=== PATIENT | female | born 1985 | race Hispanic/Latino ===

== ENCOUNTER → 2020-01-20 | Outpatient (CLI) | payer OTHER | LOC: LAB.O 12:23 | PROVIDERS: ATTEND Obstetrics & Gynecology | DX: O09.32 Supervision of pregnancy with insufficient antenatal care, second trimester (principal); Z3A.22 22 weeks gestation of pregnancy ==

== ENCOUNTER 2020-02-11 10:31 | Emergency (ER) | payer OTHER ==
[2020-02-11] MEDS ORDERED: MORPHINE SULFATE INJ 10 MG/ML VIAL IV ONE (10:39)
[2020-02-11] MEDS ORDERED: METOCLOPRAMIDE HCL INJ 10 MG/2 ML VIAL IV ONE (10:39)
--- NOTE | 2020-02-11 10:43 | ED.PDOC ---
History of Present Illness - General Time Seen by Provider: 02/11/20 10:37 Source: patient, RN notes reviewed Exam Limitations: no limitations Additional Information: 34 Female, with no known medical problems, patient is 25 weeks last m enstrual period was August 15 patient is 3 para 2 presents to the ER because of abdominal pain and back pain. Patient has good care. Patient stated that she was at home she was carrying a laundry bag down some steps when she fell she injured her back and then she fell forward hitting her abdomen, patient is concerned because of the abdominal trauma but denies any vaginal bleeding, patient is A+ patietn sees Dr Roy. patient arrived tearful she denies head trauma - History of Present Illness Timing/Duration: other - 15 minutes ago Severity: moderate Improving Factors: nothing Worsening Factors: nothing Associated Symptoms: denies symptoms Review of Systems - Review of Systems Constitutional: States: no symptoms reported EENTM: States: no symptoms reported Respiratory: States: no symptoms reported Cardiology: States: no symptoms reported Gastrointestinal/Abdominal: States: abdominal pain Genitourinary: States: no symptoms reported Musculoskeletal: States: back pain Skin: States: no symptoms reported Neurological: States: no symptoms reported Endocrine: States: no symptoms reported Hematologic/Lymphatic: States: no symptoms reported Physical Exam - Physical Exam General Appearance: Well Developed, Well Groomed, Well Hydrated, Well Nourished Eye Exam: bilateral normal Ears, Nose, Throat: hearing grossly normal, normal ENT inspection, normal pharynx Neck: non-tender, full range of motion, supple Respiratory: chest non-tender, lungs clear, normal breath sounds, no respiratory distress, no accessory muscle use Cardiovascular/Chest: normal peripheral pulses, regular rate, rhythm, no edema, no gallop, no JVD, no murmur Gastrointestinal/Abdominal: other - gravid, no acute abdomen Back Exam: other - mid line back tenderness no step offs 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 Patient is 25 weeks , she denies any vaginal bleeding and she stated that she is A+. I ordered ultrasound I order, CBC CMP and urinalysis. Unfortunately we do not have labeling delivery in this hospital, and in order to clear this patient given that she is more than, patient will need to be transferred to L&D for monitoring. 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 Patient needs a trauma surgeon at this moment given that the injury was minor but the concern is obviously fetus Calls for arrange for transfer 02/11/20 10:46 Departure - Departure Clinical Impression: Traumatic injury during in second trimester Fall Qualifiers: Encounter type: initial encounter Qualified Code(s): W19.XXXA - Unspecified fall, initial encounter Abdominal pain in Qualifiers: Trimester: second trimester Qualified Code(s): O26.892 - Other specified related conditions, second trimester; R10.9 - Unspecified abdominal pain Disposition: Transfer to Hospital Referrals: Jameson Simms MD [Primary Care Provider] - 1-2 Weeks Transfer to Outside Facility - Transfer Information Decision to Transfer Date: 02/11/20 Decision to Transfer Time: 10:48 Reason for Transfer: required specialist not available Accepting Facility: [facility]
--- NOTE | 2020-02-11 11:33 | US ---
EXAM DESCRIPTION: OB ,Limited: Ultrasound. CLINICAL HISTORY: Patient fell. 2nd-3rd trimester. COMPARISON: Previous OB ultrasound not available. . TECHNIQUE: Trans-pelvic scanning through the urine-filled bladder; hamm-scale, color Doppler, and M-mode sonography. FINDINGS: Single, intrauterine gestation, cephalic position. Amniotic fluid volume normal. IAN : 12.1 cm.. Largest quadrant 4.4 cm. Maternal cervix internal os closed.. Placenta posterior with no evidence of previa or abruptio. heart rate: M-mode 142 beats/min. limb activity observed. limited structural survey: Head, extremities seen.. Nose/lips not well seen. No abnormal fluid. Biophysical profile Score breathing movement 2 Gross body movement 2 Tone 2 Qualitative AFV 2 Reactive Heart Rate not performed. Total: 8. IMPRESSION: 1. Single, living, intrauterine gestation in cephalic presentation. Amniotic fluid volume normal, and maternal cervix internal os closed.. Placenta posterior with no evidence of previa. Structural survey not performed. No abnormal fluid.. 2. Biophysical profile 11/14. Electronically signed by: Ash Banerjee MD 02/11/2020 11:31 AM [facility]
[2020-02-11 11:50] VITALS: BP 99/67; TEMP 97.4; O2SAT 94
== END 2020-02-11 11:50 | disposition short-term general hospital (02) ==
LOC: ER 10:31
DX: O9A.212 Injury, poisoning and certain other consequences of external causes complicating pregnancy, second trimester (principal); S39.91XA Unspecified injury of abdomen, initial encounter; M54.9 Dorsalgia, unspecified; Z3A.25 25 weeks gestation of pregnancy; W10.9XXA Fall (on) (from) unspecified stairs and steps, initial encounter; Y93.89 Activity, other specified; Y92.009 Unspecified place in unspecified non-institutional (private) residence as the place of occurrence of the external cause
CPT/HCPCS: 36415; 76815; 80053; 85025; 86900; 86901; J2270; J2765